=== PATIENT | male | born 1985 | race Caucasian/White ===

== ENCOUNTER 2020-05-06 11:56 | Emergency (ER) | payer OTHER, SELFPAY ==
[2020-05-06 12:07] VITALS: BP 126/71; PULSE 65; O2SAT 99
[2020-05-06 12:08] VITALS: BP 126/71; PULSE 62; RESP 18; TEMP 36.9; O2SAT 100; BMI 30.5
[2020-05-06 12:31] VITALS: PULSE 73; O2SAT 97
--- NOTE | 2020-05-06 12:36 | DI.US.S_ITS ---
PROCEDURE: US SCROTUM INDICATIONS: RIGHT SCROTAL PAIN TECHNIQUE: Real-time scanning was performed of the scrotum and testicles, with image documentation. Color and pulse Doppler interrogation was performed of both testicles. COMPARISON: None. FINDINGS: Right: Testicle is normal in size at 4.5 x 3.0 x 3.8 cm, and homogenous in echotexture. Epididymis is normal in overall size and morphology. Small right varicocele. No hydrocele. Overlying scrotal skin is normal in thickness. Left: Testicle is normal in size at 4.4 x 2.7 x 2.8 cm, and homogeneous in echotexture. Epididymis is normal in overall size and morphology. No hydrocele or varicoceles. Overlying scrotal skin is normal in thickness. Doppler: Color and pulse Doppler demonstrate normal and symmetric arterial flow in both testicles. IMPRESSION: 1. Normal-sized testicles with no masses, with normal flow. 2. No evidence of epididymitis or orchitis. 3. Small right varicocele. Dictated by: Aram Pendleton M.D. on 05/06/2020 at 12:46 Approved by: Aram Pendleton M.D. on 05/06/2020 at 12:48
--- NOTE | 2020-05-06 13:13 | ED_ITS ---
HPI - Male Genitourinary <TON Salas - Last Filed: 05/06/20 15:58> General Chief complaint: Urogenital-Male Stated complaint: pain in lower area Time Seen by Provider: 05/06/20 12:13 Source: patient Mode of arrival: Family Vehicle Limitations: no limitations History of Present Illness HPI Narrative: The patient is a 35-year-old male nonsmoker who denies pertinent medical history presents with a chief complaint of right-sided testicular pain. He states that he was seen by flight surgeon for discoloration of his right testicle a few days ago, was told to monitor for pain. Today started having pain. Denies any abdominal pain, fevers, muscle aches or chills, denies any dysuria urgency or frequency. Denies any possibility of sexually transmitted infections. He does note that he had a vasectomy about a year ago, and wonders if this might be related to that. He has not taken anything for the pain. He states the pain has been constant today, does not change with position and is nonradiating Related Data Previous Rx's Medication Instructions Recorded ketorolac 10 mg PO TID PRN #15 tab 05/06/20 Allergies Allergy/AdvReac Type Severity Reaction Status Date / Time No Known Drug Allergies Allergy Verified 05/06/20 14:38 Review of Systems <KASI Salas - Last Filed: 05/06/20 15:58> Review of Systems Narrative: GENERAL: Denies chills, fatigue, malaise, fever, sweats. HEENT: Denies sinus pain, ear pain, sore throat, difficulty swallowing, dizziness. RESPIRATORY: Denies dyspnea, cough, wheezing, hemoptysis, sputum. CARDIOVASCULAR: Denies chest pain, palpitations, orthopnea, edema, GASTROINTESTINAL: Denies nausea, vomiting, abdominal pain, diarrhea, constipation, melena. : See HPI MUSCULOSKELETAL: denies weakness, joint pain, or bony pain SKIN: Denies rash, skin lesions, or other NEUROLOGIC: Denies weakness, headache, numbness, change in speech, confusion, seizures, incoordination. PSYCHIATRIC: No concerning psychosocial issues. 12 point review of systems is negative except for those stated above Patient History <KASI Salas - Last Filed: 05/06/20 15:58> Surgical History (Updated 05/06/20 @ 13:15 by TON Salas) History of vasectomy Social History Smoking Status: Never smoker Smoking Status: Never smoker alcohol intake frequency: 0-2 drinks per day Substance Use Type: does not use Exam <TON Salas - Last Filed: 05/06/20 15:58> Narrative Exam Narrative: GENERAL: This is a well-nourished, well-developed patient, in no acute distress HEAD: Atraumatic. Normocephalic. No temporal or scalp tenderness. EYES: Pupils equal round and reactive. Extraocular motions intact. No scleral icterus. No injection or drainage. ENT: Nose without bleeding, purulent drainage or septal hematoma. Wearing ball irway patent. NECK: Trachea midline. No JVD or lymphadenopathy. Supple, nontender, no meningeal signs. CARDIOVASCULAR: Regular rate and rhythm RESPIRATORY: No cough. No increased respiratory effort. No accessory muscle use. GASTROINTESTINAL: Abdomen soft, non-tender, nondistended. No hepato- splenomegaly, or palpable masses. No guarding. : Exam with Ashok RN at bedside, slight pain to palpation noted right testicle, no palpable deformities, positive cremasteric reflexes bilaterally. EXTREMITIES: No clubbing, cyanosis, or edema. No joint tenderness, effusion, or edema noted. BACK: Nontender without deformity or crepitance. No flank tenderness. NEURO: AOx3. SKIN: No rash or erythema on visible skin Initial Vital Signs Initial Vital Signs: Vital Signs Pulse Rate 65 05/06/20 12:07 Blood Pressure 126/71 05/06/20 12:07 Pulse Oximetry 99 05/06/20 12:07 <Lissett Smyth DO - Last Filed: 05/06/20 18:15> Initial Vital Signs Initial Vital Signs: Vital Signs Pulse Rate 65 05/06/20 12:07 Blood Pressure 126/71 05/06/20 12:07 Pulse Oximetry 99 05/06/20 12:07 Scores <TON Salas - Last Filed: 05/06/20 15:58> GCS Marvin coma scale eye opening: Spontaneous Marvin coma scale verbal response: Orientated Marvin coma scale motor response: Obey commands Marvin coma scale total score: 15 Course <TON Salas - Last Filed: 05/06/20 15:58> Orders Ordered: ED Orders 05/06/20 12:35 Chlamydia Gonorrhea PCR -URINE Stat 05/06/20 12:36 US scrotum Stat Discontinued Medications Ketorolac Tromethamine (Ketorolac 60 Mg/2 Ml Vial) 30 mg IM NOW ONE Stop: 05/06/20 14:27 Last Admin: 05/06/20 14:34 Dose: 30 mg Documented by: MARTIN Vital Signs Vital signs: Vital Signs - 8 hr 05/06/20 12:07 05/06/20 12:08 05/06/20 12:31 Temperature 98.4 F Pulse Rate 65 62 73 Respiratory Rate 18 Blood Pressure 126/71 126/71 Pulse Oximetry 99 100 97 05/06/20 14:49 Temperature Pulse Rate 59 L Respiratory Rate 14 Blood Pressure 126/71 Pulse Oximetry 100 <Lissett Smyth DO - Last Filed: 05/06/20 18:15> Orders Ordered: ED Orders 05/06/20 12:35 Chlamydia Gonorrhea PCR -URINE Stat 05/06/20 12:36 US scrotum Stat Discontinued Medications Ketorolac Tromethamine (Ketorolac 60 Mg/2 Ml Vial) 30 mg IM NOW ONE Stop: 05/06/20 14:27 Last Admin: 05/06/20 14:34 Dose: 30 mg Documented by: MARTIN Vital Signs Vital signs: Vital Signs - 8 hr 05/06/20 12:07 05/06/20 12:08 05/06/20 12:31 Temperature 98.4 F Pulse Rate 65 62 73 Respiratory Rate 18 Blood Pressure 126/71 126/71 Pulse Oximetry 99 100 97 05/06/20 14:49 Temperature Pulse Rate 59 L Respiratory Rate 14 Blood Pressure 126/71 Pulse Oximetry 100 MDM - Male Genitourinary <TON Salas - Last Filed: 05/06/20 15:58> Lab Data Labs: Lab Results 05/06/20 Range/Units 12:35 Ur Chlamydia DNA (PCR) Not detected N gonorrhoeae DNA (PCR) Not detected Urine Dip Bedside Urine Glucose Negative Bedside Urine Bilirubin - Negative Bedside Urine Ketone - Negative Urine Specific [place] 1.015 Bedside Urine Occult Blood - Negative Bedside Urine pH 6.0 Bedside Urine Protein - Negative Bedside Urine Urobilinogen - Negative Bedside Urine Nitrite - Negative Bedside Urine Leukocytes - Negative Esterase Imaging Data scrotum us: Radiologist's Impression: [address] [place] [id number] ReportSigned Patient: Helder AlexandreMR#: [id number]: [id number]:[id number]/Sex: 35 / MDate of Service: 05/06/20Loc: EDAccession Number: [id number] Procedure: US scrotum Ordering Provider: Lissett Hernandez PROCEDURE: US SCROTUM INDICATIONS: RIGHT SCROTAL PAIN TECHNIQUE: Real-time scanning was performed of the scrotum and testicles, with image documentation. Color and pulse Doppler interrogation was performed of both testicles. COMPARISON: None. FINDINGS: Right: Testicle is normal in size at 4.5 x 3.0 x 3.8 cm, and homogenous in echotexture. Epididymis is normal in overall size and morphology. Small right varicocele. No hydrocele. Overlying scrotal skin is normal in thickness. Left: Testicle is normal in size at 4.4 x 2.7 x 2.8 cm, and homogeneous in echotexture. Epididymis is normal in overall size and morphology. No hydrocele or varicoceles. Overlying scrotal skin is normal in thickness. Doppler: Color and pulse Doppler demonstrate normal and symmetric arterial flow in both testicles. IMPRESSION: 1. Normal-sized testicles with no masses, with normal flow. 2. No evidence of epididymitis or orchitis. 3. Small right varicocele. Dictated by: Aram Pendleton M.D. on 05/06/2020 at 12:46 Approved by: Aram Pendleton M.D. on 05/06/2020 at 12:48 [facility] Narrative Medical decision making narrative: The patient is a 35-year-old male who presents with a chief complaint of right testicular pain and discoloration. Ultrasound illustrates varicocele. Offered patient Toradol. No signs of infection in urine, negative GC. Discussed at length the importance of following up with his primary care provider in the next few days, come back to the ER for acute concerns. Patient has no questions or concerns upon discharge states understanding return precautions as well as follow-up care. Small prescription of Toradol sent in for him. He has been hemodynamically stable in no acute distress throughout his stay in the ER. <Lissett Smyth DO - Last Filed: 05/06/20 18:15> Lab Data Labs: Lab Results 05/06/20 Range/Units 12:35 Ur Chlamydia DNA (PCR) Not detected N gonorrhoeae DNA (PCR) Not detected Urine Dip Bedside Urine Glucose Negative Bedside Urine Bilirubin - Negative Bedside Urine Ketone - Negative Urine Specific [place] 1.015 Bedside Urine Occult Blood - Negative Bedside Urine pH 6.0 Bedside Urine Protein - Negative Bedside Urine Urobilinogen - Negative Bedside Urine Nitrite - Negative Bedside Urine Leukocytes - Negative Esterase Discharge Plan Departure Patient Disposition: Home Clinical Impression: Varicocele Instructions: DI for Varicocele Activity Restrictions/Additional Instructions: Thank you for trusting us with your care today. Your urine shows no signs of infection. However your ultrasound was concerning for a varicocele. Please follow-up with primary care provider in the next few days. I did send a prescription of ketorolac or Toradol to [facility]. I have given you a prescription of Toradol. This is an NSAID. Do not combine it with other NSAIDs such as Aleve or ibuprofen. I suggest taking it with some food, as it can irritate your stomach. Prescriptions: New ketorolac 10 mg tablet 10 mg PO TID PRN (Reason: pain) Qty: 15 RF: 0 Referrals: [facility] [Provider Group] <Lissett Smyth DO - Last Filed: 05/06/20 18:15> Cosign ED Attending Cosignature Attestation: I was immediately available in the department for consultation. Documentation has been reviewed.
[2020-05-06 14:12] LABS: Urine N gonorrhoeae NOT DETECTED
[2020-05-06 14:15] LABS: Urine Chlamydia NOT DETECTED
[2020-05-06] MEDS: KETOROLAC 60 MG/2 ML VIAL 30 MG IM (14:34)
[2020-05-06 14:49] VITALS: BP 126/71; PULSE 59; RESP 14; O2SAT 100
== END 2020-05-06 15:04 | disposition home or self-care (01) ==
PROVIDERS: Emergency Provider Nurse Practitioner Family
DX: I86.1 Scrotal varices (principal)
CPT/HCPCS: 76870; 81003; 87491; 87591; 96372; 99281; 99283; J1885

== ENCOUNTER → 2021-06-10 17:07 | Outpatient (CLI) | payer OTHER, SELFPAY ==
--- NOTE | 2021-06-10 17:10 | DI.MRI.S_ITS ---
PROCEDURE: MR LUMBAR SPINE WO CON INDICATIONS: LOW BACK PAIN ,UNSPECIDIED TECHNIQUE: Noncontrast sagittal T1 spin echo and T2 fast echo, sagittal STIR, and T2 fast spin echo through the lumbar spine. In cases with scoliosis, additional coronal T2 fast spin echo may be performed. COMPARISON: None. FINDINGS: Image quality: Diagnostic, with note made of motion artifact. Alignment and Curvature: There is normal bony alignment. Bone Marrow: Marrow is of normal overall signal. No acute vertebral body compression fractures. Spinal Cord: Conus medullaris terminates at the L1 level. Visualized cord demonstrates normal signal and size. Paraspinous Soft Tissues: No paravertebral masses. T12-L1: Normal appearance. L1-L2: Normal appearance. L2-L3: No significant abnormality is seen. L3-L4: The disc height and disk signal are well-preserved. Mild generalized disc bulge is seen. Mild facet joint hypertrophy is seen. Mild to moderate bilateral neural foraminal narrowing can be seen. Mild central canal narrowing is seen. L4-L5: The disc height and disk signal are well-preserved. Mild generalized disc bulge is seen. A mild central disc protrusion can be seen. Mild facet joint hypertrophy is seen. Moderate bilateral neural foraminal narrowing is seen. Mild central canal narrowing is seen. L5-S1: Mild loss of disc height is seen. The disc signal is relatively well preserved. Mild disc bulge is seen, with a mild central disc extrusion, with mild inferior migration of the disc material. There is a focal annular fissure seen posteriorly. Mild facet joint hypertrophy is seen. There is at least moderate bilateral neural foraminal narrowing seen, left worse than right. There is a degree of compression seen upon the exiting nerve roots. Moderate central canal narrowing is seen, which is exacerbated by epidural lipomatosis. 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 Dictated by: Parth Wilkinson M.D. on 06/10/2021 at 17:44 Approved by: Parth Wilkinson M.D. on 06/10/2021 at 17:46
== END ==
DX: M47.817 Spondylosis without myelopathy or radiculopathy, lumbosacral region (principal); M47.816 Spondylosis without myelopathy or radiculopathy, lumbar region; M54.50 Low back pain, unspecified
CPT/HCPCS: 72148